=== PATIENT | male | born 1985 | race Two or more races ===

== ENCOUNTER 2023-08-04 10:28 | Emergency (ER) | payer OTHER ==
[~2023-08-04] VITALS: Ht 175.3 cm; Wt 103.6 kg
[2023-08-04] MEDS ORDERED: SODIUM CHLORIDE 0.9% 1,000 ML IV ONE (11:15)
[2023-08-04] MEDS ORDERED: ONDANSETRON HCL 4 MG/2 ML VIAL IV ONE (11:15)
[2023-08-04] MEDS ORDERED: THIAMINE HCL 100 MG TAB PO ONE (11:15)
[2023-08-04 11:24] LABS: Basophils # (auto) 0.1 10 ^3/uL (0-0.2); Basophils % (auto) 0.6 % (0.0-2.0); Eosinophils # (auto) 0.1 10 ^3/uL (0-0.8); Eosinophils % (auto) 1.2 % (0.0-7.0); Hematocrit 47.5 % (41.0-53.0); Hemoglobin 16.4 g/dL (13.5-17.5); Lymphocytes # (auto) 2.2 10 ^3/uL (0.4-5.4); Lymphocytes % (auto) 20.9 % (10.0-50.0); Mean Corpuscular Hemoglobin 31.5 pg (28.0-32.0); Mean Corpuscular Hgb Conc. 34.5 g/dL (32.0-36.0); Mean Corpuscular Volume 91.4 fL (80.0-100.0); Monocytes # (auto) 0.6 10 ^3/uL (0-1.3); Monocytes % (auto) 5.8 % (0.0-12.0); Neutrophils # (auto) 7.4 10 ^3/uL (1.6-8.6); Neutrophils % (auto) 71.5 % (37.0-80.0); Nucleated Red Blood Cells % 0.2 %; Red Cell Distribution Width 13.2 % (11.8-14.3); White Blood Cell 10.4 10^3/uL (4.4-10.8)
[2023-08-04 11:39] LABS: Alanine Aminotransferase 60 U/L (7-40); Alkaline Phosphatase 143 U/L (46-116); Blood Alcohol 107.4 mg/dL (<10); Calcium 9.7 mg/dL (8.5-10.1); Carbon Dioxide 27 mmol/L (20-30); Chloride 93 mmol/L (98-107); Glucose 286 mg/dL (74-106)
[2023-08-04 11:40] LABS: Anion Gap 11 (5-15); Aspartate Aminotransferase 42 U/L (13-40); BUN/Creatinine Ratio 8.1 (10.0-20.0); Bilirubin, Total 1.2 mg/dL (0.2-1.0); Blood Urea Nitrogen 5 mg/dL (9-23); Potassium 4.2 mmol/L (3.5-5.1); Sodium 131 mmol/L (136-145)
[2023-08-04 11:40] LABS: Urine Bacteria NONE SEEN /hpf (None Seen); Urine Blood Negative /uL (Negative); Urine Clarity Clear (Clear); Urine Color Colorless (Yellow); Urine Protein, UAD Negative (Negative); Urine Specific Gravity 1.005 (1.001-1.035); Urine Sperm PRESENT /hpf (None Seen); Urine Urobilinogen Normal (Negative); Urine WBC 1 /hpf (0 - 3); Urine pH 6.5 (5.0-8.0)
[2023-08-04 11:50] LABS: Amphetamine Screen, Urine Neg (NEGATIVE); Barbiturate Scree,Urine Neg (NEGATIVE); Benzodiazephine Screen, Urine Neg (NEGATIVE); Cannabinoid Screen, Urine Neg (NEGATIVE); Cocaine Screen, Urine Neg (NEGATIVE); Opiate Scree,Urine Neg (NEGATIVE); Phencyclidine Screen, Urine Neg (NEGATIVE)
[2023-08-04] MEDS ORDERED: ONDANSETRON HCL 4 MG/2 ML VIAL ONE (12:48)
[2023-08-04 12:50] LABS: Lactic Acid w/Reflex 2.2 mmol/L (0.4-2.0)
[2023-08-04 15:51] VITALS: BP 105/76; PULSE 96; RESP 18; TEMP 98.5; O2SAT 98
== END 2023-08-04 17:18 | disposition home or self-care (01) ==
LOC: ER 10:28
DX: F10.10 Alcohol abuse, uncomplicated (principal); R79.89 Other specified abnormal findings of blood chemistry; E86.0 Dehydration; E11.65 Type 2 diabetes mellitus with hyperglycemia; R42 Dizziness and giddiness; Z79.899 Other long term (current) drug therapy
CPT/HCPCS: 36415; 80053; 80307; 80320; 81001; 82010; 82962; 83605; 83735; 84484; 85025; 87040; 93005; 96361; 96374; 99284; J2405; J7030